=== PATIENT | female | born 1995 | race Caucasian/White ===

== ENCOUNTER 2018-05-11 18:23 | Emergency (ER) | payer BC ==
[~2018-05-11] VITALS: Ht 154.9 cm; Wt 63.5 kg
--- NOTE | ~2018-05-11 | EKG ---
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
[2018-05-11 19:04] LABS: URINE BILIRUBIN NEGATIVE (Negative); URINE BLOOD 3+ (Negative); URINE CLARITY CLOUDY; URINE COLOR YELLOW; URINE GLUCOSE-RANDOM* NEGATIVE (Negative); URINE KETONES NEGATIVE (Negative); URINE LEUKOCYTES-REFLEX NEGATIVE (Negative); URINE NITRITE-REFLEX NEGATIVE (Negative); URINE PROTEIN (DIPSTICK) TRACE (Negative); URINE UROBILINOGEN 0.2 E.U./dl (0.2-1.0)
[2018-05-11 19:10] LABS: AMORPHOUS PHOSPHATES Moderate /LPF (None Seen); CASTS None Seen /LPF (None Seen); SQUAMOUS 0-3 Few /LPF (0-3)
[2018-05-11 19:11] LABS: BACTERIA-REFLEX 1-9 Few /HPF (None Seen); URINE RBC 0-2 Rare /HPF (0-2); URINE WBC-REFLEX None Seen /HPF (0-5)
[2018-05-11 19:22] LABS: BASOPHILS 0.8 % (0.0-2.0); EOSINOPHILS 3.6 % (0.0-3.0); HEMATOCRIT 39.5 % (37.0-47.0); HEMOGLOBIN 13.7 gm/dL (12.0-15.0); LYMPHOCYTES 48.7 % (24.0-44.0); MCHC 34.6 g/dL (28.0-37.0); MCV 86.6 fL (80.0-100.0); MONOCYTES 9.1 % (1.0-8.0); PLATELET COUNT 229 thou/uL (150-400); POLYS 37.8 % (36.0-66.0); RBC 4.56 mil/uL (4.20-5.00); RDW 13.6 % (10.5-14.5); WBC 5.2 thou/uL (4.0-11.0)
[2018-05-11 19:30] LABS: CREATININE 0.6 mg/dL (0.6-1.0)
[2018-05-11 19:36] LABS: ALBUMIN 3.4 g/dL (3.4-5.0); DIRECT BILIRUBIN 0.1 mg/dL (<0.1-0.3); TOTAL BILIRUBIN 0.7 mg/dL (<0.1-1.0); TOTAL PROTEIN 6.9 g/dL (6.4-8.2)
[2018-05-11] MEDS ORDERED: IBUPROFEN 600600 M1 PO (20:13)
[2018-05-11] MEDS ORDERED: NORCO 5-325 TA1 EACH PO (20:13)
[2018-05-11] MEDS ORDERED: ZOFRAN ODT4 MG PO (20:13)
== END 2018-05-11 20:56 | disposition home or self-care (01) ==
LOC: ER 18:23
PROVIDERS: Emergency Medicine
DX: K80.50 Calculus of bile duct without cholangitis or cholecystitis without obstruction (principal); Z88.2 Allergy status to sulfonamides

== ENCOUNTER 2018-05-18 10:17 | Emergency (ER) | payer BC ==
[~2018-05-18] VITALS: Ht 154.9 cm; Wt 64.4 kg
--- NOTE | ~2018-05-18 | EKG ---
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
[~2018-05-18 10:17] MED LIST: IBUPROFEN 600600 M1 PO; NORCO 5-325 TA1 EACH PO; ZOFRAN ODT4 MG PO
[2018-05-18 10:36] LABS: URINE BILIRUBIN NEGATIVE (Negative); URINE BLOOD NEGATIVE (Negative); URINE CLARITY CLEAR; URINE COLOR YELLOW; URINE GLUCOSE-RANDOM* NEGATIVE (Negative); URINE KETONES NEGATIVE (Negative); URINE LEUKOCYTES-REFLEX NEGATIVE (Negative); URINE NITRITE-REFLEX NEGATIVE (Negative); URINE PROTEIN (DIPSTICK) NEGATIVE (Negative); URINE SPECIFIC GRAVITY 1.015 (1.005-1.035); URINE UROBILINOGEN 0.2 E.U./dl (0.2-1.0)
[2018-05-18 11:02] LABS: ABSOLUTE NEUTROPHILS 5.1 thou/uL (1.4-8.2); BASOPHILS 0.8 % (0.0-2.0); EOSINOPHILS 1.7 % (0.0-3.0); HEMATOCRIT 39.3 % (37.0-47.0); HEMOGLOBIN 13.5 gm/dL (12.0-15.0); LYMPHOCYTES 21.1 % (24.0-44.0); MCH 29.8 pg (26.0-34.0); MCHC 34.3 g/dL (28.0-37.0); MCV 86.8 fL (80.0-100.0); MONOCYTES 6.8 % (1.0-8.0); PLATELET COUNT 193 thou/uL (150-400); POLYS 69.6 % (36.0-66.0); RBC 4.53 mil/uL (4.20-5.00); RDW 13.5 % (10.5-14.5); WBC 7.3 thou/uL (4.0-11.0)
[2018-05-18 11:09] LABS: CREATININE 0.6 mg/dL (0.6-1.0); POTASSIUM 4.1 mmol/L (3.5-5.1)
[2018-05-18 11:16] LABS: ALBUMIN 3.5 g/dL (3.4-5.0); TOTAL BILIRUBIN 1.3 mg/dL (<0.1-1.0); TOTAL PROTEIN 7.1 g/dL (6.4-8.2)
[2018-05-18] MEDS ORDERED: PHENERGAN 25 MG25 M1 PO (12:47)
[2018-05-18] MEDS ORDERED: NORCO 5-325 TA1 EACH PO (12:47)
[2018-05-18] MEDS ORDERED: CARAFATE 1 GM TA1 G1 PO (12:47)
[2018-05-18] MEDS ORDERED: PEPCID20 MG PO (12:47)
== END 2018-05-18 13:09 | disposition home or self-care (01) ==
LOC: ER 10:17
PROVIDERS: Physician Assistant
DX: R10.13 Epigastric pain (principal); R11.2 Nausea with vomiting, unspecified; R51 Headache; Z88.2 Allergy status to sulfonamides; R53.1 Weakness

== ENCOUNTER 2019-06-19 04:28 | Emergency (ER) | payer BC ==
[~2019-06-19] VITALS: Ht 154.9 cm; Wt 52.2 kg
[~2019-06-19 04:28] MED LIST changes: +CARAFATE 1 GM TA1 G1 PO; +PEPCID20 MG PO; +PHENERGAN 25 MG25 M1 PO
[2019-06-19 05:08] LABS: CALCIUM 9.2 mg/dL (8.5-10.1); CREATININE 0.5 mg/dL (0.6-1.0); MAGNESIUM 1.7 mg/dL (1.8-2.4); POTASSIUM 4.1 mmol/L (3.5-5.1)
[2019-06-19 05:36] LABS: ABSOLUTE NEUTROPHILS 5.6 thou/uL (1.4-8.2); BASOPHILS 0.5 % (0.0-2.0); EOSINOPHILS 1.5 % (0.0-3.0); HEMATOCRIT 41.8 % (37.0-47.0); HEMOGLOBIN 14.1 gm/dL (12.0-15.0); LYMPHOCYTES 20.9 % (24.0-44.0); MCH 29.3 pg (26.0-34.0); MCHC 33.7 g/dL (28.0-37.0); MONOCYTES 7.2 % (1.0-8.0); PLATELET COUNT 213 thou/uL (150-400); POLYS 69.9 % (36.0-66.0); WBC 8.1 thou/uL (4.0-11.0)
[2019-06-19 06:24] VITALS: BP 112/77
== END 2019-06-19 06:26 | disposition home or self-care (01) ==
LOC: ER 04:28
PROVIDERS: Emergency Medicine
DX: R10.32 Left lower quadrant pain (principal); R11.10 Vomiting, unspecified; R19.7 Diarrhea, unspecified; Z88.2 Allergy status to sulfonamides; Z79.899 Other long term (current) drug therapy